=== PATIENT | female | born 1975 | race Caucasian/White ===

== ENCOUNTER → 2017-11-16 | Outpatient (CLI) | payer OTHER ==
[~2017-11-16] MED LIST: AMOXICILLIN500 MG PO; ANAPROX DS550 MG PO; AUGMENTIN 875 M1 TAB PO; AVELOX400 MG PO; BIAXIN500 MG PO; CLARITIN-D 10 M1 T21 PO; CLINDAMYCIN150 MG PO; DAYPRO600 M1 PO; DIFLUCAN150 MG PO; DOXYCYCLINE100 M3 PO; FIORICET 325 MG1 TAB PO; FLEXERIL10 MG PO; IBUPROFEN 30 M800 MG PO; LEVAQUIN750 MG PO; MEDROL DOSEPAK4 MG PO; MOTRIN800 MG PO; NKHM; NO DAILY MEDS; PEN-VEE K500 MG PO; PENICILLIN250 MG PO; PERCOCET 325 MG1 TA2 PO; PREDNISONE20 M1 PO; PREDNISONE50 MG PO; PROVENTIL HFA6.7 GM INH; PROVENTIL0.09 MG/AC IH; TESSALON PERLE100 M1 PO; TOBRADEX 0.1%-0.5 ML OPH; TRAMADOL HCL50 MG PO; TRIMOX500 MG PO; TYLENOL W/CODEI1 TA2 PO; ULTRAM50 MG PO; VICODIN 5/500 505 MG PO; VICODIN 500 MG-1 TAB PO; VOLTAREN75 MG PO; ZITHROMAX Z PA250 MG PO; ZITHROMAX250 MG PO
== END | disposition home or self-care (01) ==
LOC: US 15:44 → MAMMO 17:20
DX: N92.6 Irregular menstruation, unspecified (principal)

== ENCOUNTER 2017-12-15 07:03 | Emergency (ER) | payer OTHER ==
--- NOTE | ~2017-12-15 | EKG ---
[place], [place] ELECTROCARDIOGRAM REPORT NAME: UBALDO HERRERA UNIT #: [id number] ROOM: DOCTOR: TIAGO DRAFT REPORT BIRTHDATE: [birth year] [facility] Test Date: 2017-12-15 Test Time: 07:07:29 Pat Name: UBALDO HERRERA Department: Room: Gender: F Data Analysis Assistant: PRADEEP OLIVARESB: 1975 Requested By: JOSE KIRAN Order Number: [id number] Reading MD: Renard Charles MD Measurements Intervals [place] Rate: 71 P: 74 DE: 123 QRS: 41 QRSD: 106 T: 51 QT: 419 QTc: 456 Interpretive Statements Sinus rhythm Nonspecific ST T changes Electronically Signed On 12-16-2017 8:24:04 PDT by Renard Charles MD CM:EKGRPT:ELECTROCARDIOGRAM REPORT [id number] JOSE GARCIA DRAFT REPORT JOSE KIRAN DO
[~2017-12-15 07:03] MED LIST changes: -DOXYCYCLINE100 M3 PO; -PREDNISONE20 M1 PO; -PREDNISONE50 MG PO; -PROVENTIL HFA6.7 GM INH; -TESSALON PERLE100 M1 PO; -ZITHROMAX250 MG PO
[2017-12-15 07:21] LABS: BASO % 0.5 % (0.0-1.0); EOS # 0.2 10*3/uL (0.0-0.4); EOS % 2.4 % (1.0-4.0); HEMATOCRIT 37.7 % (37.0-47.0); HEMOGLOBIN 12.6 g/dl (12.0-16.0); LYMPH # 2.5 10*3/uL (1.3-4.4); LYMPH % 40.2 % (27.0-41.0); MEAN CELL VOLUME 96.7 fl (81.0-99.0); MEAN CORPUSCULAR HGB 32.3 pg (27.0-31.0); MEAN CORPUSCULAR HGB CONC 33.4 g/dl (33.0-37.0); MEAN PLATELET VOLUME 11.1 fl (9.6-12.3); MONO # 0.5 10*3/uL (0.1-1.0); MONO % 8.4 % (3.0-9.0); NEUT % 48.3 % (47.0-73.0); PLATELET COUNT AUTOMATED 227 10*3/uL (130-400); RED CELL DISTRI WIDTH 13.7 % (0-14.5); WHITE BLOOD COUNT 6.2 10*3/uL (4.8-10.8)
[2017-12-15 07:29] LABS: ACT PARTIAL THROMBO TIME 23.1 SECONDS (20.8-31.5); INTERNATIONAL NORM RATIO 1.1 (2.0-3.5)
[2017-12-15 07:39] LABS: LIPASE 168 U/L (73-393)
[2017-12-15 07:51] LABS: ALBUMIN 3.3 gm/dl (3.1-4.5); ALKALINE PHOSPHATASE 58 U/L (45-117); BUN 9 mg/dl (7-24); CHLORIDE 111 mmol/L (98-107); CREATININE 0.75 mg/dL (0.55-1.02); SGOT/AST 19 IU/L (3-35); SGPT/ALT 19 U/L (12-78); SODIUM 141 mmol/L (136-145); TOTAL PROTEIN 6.9 gm/dL (6.4-8.2)
[2017-12-15 07:53] LABS: BETA-HCG, QUANT < 1.0 mIU/mL (1-3)
[2017-12-15 07:56] LABS: TROPONIN I < 0.015 ng/ml (<0.045)
[2017-12-15 08:04] VITALS: BP 115/73
[2017-12-15] MEDS ORDERED: PREDNISONE50 MG PO (09:15)
[2017-12-15] MEDS ORDERED: ZITHROMAX250 MG PO (09:15)
== END 2017-12-15 09:40 | disposition home or self-care (01) ==
LOC: ED 07:03
PROVIDERS: Emergency Medicine
DX: J20.9 Acute bronchitis, unspecified (principal); J44.1 Chronic obstructive pulmonary disease with (acute) exacerbation; R19.7 Diarrhea, unspecified; F17.200 Nicotine dependence, unspecified, uncomplicated; Z88.6 Allergy status to analgesic agent; Z88.8 Allergy status to other drugs, medicaments and biological substances

== ENCOUNTER 2018-01-31 08:32 | Emergency (ER) | payer OTHER ==
[~2018-01-31] VITALS: Ht 165.1 cm; Wt 72.6 kg
--- NOTE | ~2018-01-31 | EKG ---
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
[~2018-01-31 08:32] MED LIST changes: +PREDNISONE50 MG PO; +ZITHROMAX250 MG PO
[2018-01-31 08:38] VITALS: BP 121/65
[2018-01-31 09:55] LABS: BASO % 0.6 % (0.0-1.0); EOS # 0.1 10*3/uL (0.0-0.4); EOS % 0.9 % (1.0-4.0); HEMATOCRIT 39.6 % (37.0-47.0); HEMOGLOBIN 12.5 g/dl (12.0-16.0); LYMPH # 2.4 10*3/uL (1.3-4.4); LYMPH % 36.3 % (27.0-41.0); MEAN CELL VOLUME 99.2 fl (81.0-99.0); MEAN CORPUSCULAR HGB 31.3 pg (27.0-31.0); MEAN CORPUSCULAR HGB CONC 31.6 g/dl (33.0-37.0); MEAN PLATELET VOLUME 10.3 fl (9.6-12.3); MONO # 0.5 10*3/uL (0.1-1.0); MONO % 7.6 % (3.0-9.0); NEUT # 3.6 10*3/uL (2.3-7.9); NEUT % 54.3 % (47.0-73.0); PLATELET COUNT AUTOMATED 240 10*3/uL (130-400); RED BLOOD COUNT 3.99 10*6/uL (4.10-5.10); RED CELL DISTRI WIDTH 14.1 % (0-14.5); WHITE BLOOD COUNT 6.6 10*3/uL (4.8-10.8)
[2018-01-31 10:03] LABS: BILIRUBIN NEGATIVE (NEGATIVE); BLOOD 2+ (NEGATIVE); CLARITY CLOUDY (CLEAR); COLOR YELLOW (YELLOW); GLUCOSE NEGATIVE (NEGATIVE); KETONE NEGATIVE (NEGATIVE); LEUKO ESTERASE NEGATIVE (NEGATIVE); NITRITE NEGATIVE (NEGATIVE); UROBILINOGEN 0.2 E.U./dl (0.2-1.0)
[2018-01-31 10:05] LABS: ACT PARTIAL THROMBO TIME 22.8 SECONDS (20.8-31.5)
[2018-01-31 10:11] LABS: BACTERIA TRACE; EPITHELIAL CELLS 25-30
[2018-01-31 10:14] LABS: ALBUMIN 3.5 gm/dl (3.1-4.5); ALKALINE PHOSPHATASE 66 U/L (45-117); BUN 6 mg/dl (7-24); CHLORIDE 107 mmol/L (98-107); CREATININE 0.79 mg/dL (0.55-1.02); LIPASE 150 U/L (73-393); SGOT/AST 17 IU/L (3-35); SGPT/ALT 19 U/L (12-78); SODIUM 139 mmol/L (136-145); TOTAL PROTEIN 7.1 gm/dL (6.4-8.2)
[2018-01-31 10:17] LABS: TROPONIN I < 0.015 ng/ml (<0.045)
[2018-01-31] MEDS ORDERED: DOXYCYCLINE100 M3 PO (11:08)
[2018-01-31] MEDS ORDERED: TESSALON PERLE100 M1 PO (11:08)
[2018-01-31] MEDS ORDERED: PROVENTIL HFA6.7 GM INH (11:08)
[2018-01-31] MEDS ORDERED: PREDNISONE20 M1 PO (11:08)
== END 2018-01-31 11:35 | disposition home or self-care (01) ==
LOC: ED 08:32
PROVIDERS: Physician Assistant
DX: J20.9 Acute bronchitis, unspecified (principal); R07.1 Chest pain on breathing; M54.6 Pain in thoracic spine; F17.210 Nicotine dependence, cigarettes, uncomplicated; Z88.6 Allergy status to analgesic agent; Z88.8 Allergy status to other drugs, medicaments and biological substances

== ENCOUNTER 2018-06-01 07:19 | Emergency (ER) | payer OTHER ==
[~2018-06-01] VITALS: Ht 160 cm; Wt 72.6 kg
[~2018-06-01 07:19] MED LIST changes: +DOXYCYCLINE100 M3 PO; +PREDNISONE20 M1 PO; +PROVENTIL HFA6.7 GM INH; +TESSALON PERLE100 M1 PO
[2018-06-01 07:21] VITALS: BP 108/52
[2018-06-01 08:08] LABS: BASO % 0.5 % (0.0-1.0); EOS # 0.1 10*3/uL (0.0-0.4); EOS % 1.1 % (1.0-4.0); HEMATOCRIT 38.9 % (37.0-47.0); HEMOGLOBIN 12.3 g/dl (12.0-16.0); LYMPH # 2.1 10*3/uL (1.3-4.4); LYMPH % 28.2 % (27.0-41.0); MEAN CELL VOLUME 98.5 fl (81.0-99.0); MEAN CORPUSCULAR HGB 31.1 pg (27.0-31.0); MEAN CORPUSCULAR HGB CONC 31.6 g/dl (33.0-37.0); MEAN PLATELET VOLUME 10.5 fl (9.6-12.3); MONO # 0.5 10*3/uL (0.1-1.0); MONO % 6.4 % (3.0-9.0); NEUT # 4.8 10*3/uL (2.3-7.9); NEUT % 63.5 % (47.0-73.0); PLATELET COUNT AUTOMATED 204 10*3/uL (130-400); RED BLOOD COUNT 3.95 10*6/uL (4.10-5.10); RED CELL DISTRI WIDTH 14.6 % (0-14.5); WHITE BLOOD COUNT 7.6 10*3/uL (4.8-10.8)
[2018-06-01 08:20] LABS: BUN 8 mg/dl (7-24); CHLORIDE 109 mmol/L (98-107); CREATININE 0.79 mg/dL (0.55-1.02); POTASSIUM 3.9 mmol/L (3.5-5.1); SODIUM 143 mmol/L (136-145)
[2018-06-01 08:25] LABS: B-hCG (QUALITATIVE) NEGATIVE (NEGATIVE)
[2018-06-01 09:36] LABS: BILIRUBIN NEGATIVE (NEGATIVE); BLOOD NEGATIVE (NEGATIVE); CLARITY CLEAR (CLEAR); COLOR YELLOW (YELLOW); GLUCOSE NEGATIVE (NEGATIVE); KETONE NEGATIVE (NEGATIVE); LEUKO ESTERASE NEGATIVE (NEGATIVE); NITRITE NEGATIVE (NEGATIVE); PH 6.5 (5.0-9.0); SPECIFIC GRAVITY <= 1.005 (1.005-1.030); UROBILINOGEN 0.2 E.U./dl (0.2-1.0)
== END 2018-06-01 09:52 | disposition home or self-care (01) ==
LOC: ED 07:19
PROVIDERS: Internal Medicine
DX: R10.2 Pelvic and perineal pain (principal); R11.10 Vomiting, unspecified; N93.9 Abnormal uterine and vaginal bleeding, unspecified; J44.9 Chronic obstructive pulmonary disease, unspecified; Z88.6 Allergy status to analgesic agent

== ENCOUNTER 2018-07-03 09:39 | Emergency (ER) | payer OTHER ==
[~2018-07-03] VITALS: Ht 160 cm; Wt 78.9 kg
[2018-07-03 09:43] VITALS: BP 126/72
[2018-07-03] MEDS ORDERED: FLONASE ALLERG9.9 ML NAS (09:50)
[2018-07-03] MEDS ORDERED: VIBRAMYCIN100 MG PO (09:50)
[2018-07-03] MEDS ORDERED: CLARITIN10 MG PO (09:50)
[2018-07-03] MEDS ORDERED: PREDNISONE10 MG PO (09:50)
[2018-07-03] MEDS ORDERED: Ipratropium Brom3 ML INH (10:13)
== END 2018-07-03 10:30 | disposition home or self-care (01) ==
LOC: ED 09:39
DX: J20.9 Acute bronchitis, unspecified (principal); J44.9 Chronic obstructive pulmonary disease, unspecified; F17.200 Nicotine dependence, unspecified, uncomplicated; Z88.6 Allergy status to analgesic agent